=== PATIENT | male | born 1960 | race Caucasian/White ===

== ENCOUNTER 2018-11-09 06:38 | Emergency (ER) | payer BC ==
[2018-11-09] MEDS ORDERED: BABY ASPIRIN 81 MG CHEW PO ONE (06:53)
[2018-11-09] MEDS ORDERED: Nitrostat 0.4 MG (ED) SL ONE ×3 (06:53→07:29)
[2018-11-09] MEDS ORDERED: Sodium Chloride 0.9% 1000 ML 1,000 ML IV SCH (07:00)
[2018-11-09] MEDS ORDERED: BABY ASPIRIN 81 MG CHEW ONE (07:09)
[2018-11-09] MEDS ORDERED: Sodium Chloride 0.9% 1000 ML 1,000 ML ONE (07:10)
[2018-11-09 07:11] LABS: BASOPHIL % 0.3 % (0.0-0.4); Basophil (Absolute #) 0.03 (0-0.4); Eosinophil % 0.7 % (0.00-5.0); Eosinophil (Absolute #) 0.08 (0-0.5); Granulocyte Absolute (ANC) 8.87 (1.4-6.9); Granulocytes % 80.2 % (36.0-66.0); Hematocrit 49.3 % (42-50); Hemoglobin 16.4 gm/dl (12.5-18.0); Lymphocytes % 10.8 % (24.0-44.0); Mean Cell Volume 96.7 fl (78-100); Mean Corpuscular Hemoglobin 32.2 pg (26-32); Mean Corpuscular Hgb Concent. 33.3 g/dl (32-36); Mean Platelet Volume 10.6 fl (6-9.5); Monocyte (Absolute #) 0.88 (0.0-1.3); Platelet Count 203 K/mm3 (150-450); Red Cell Distribution Width 12.7 % (11.5-14.0); White Blood Count 11.1 K/mm3 (4.0-10.5)
--- NOTE | 2018-11-09 07:21 | ERPHSYRPT ---
- History of Present Illness Time Seen by Provider: 11/09/18 07:14 Historian: patient Exam Limitations: no limitations Patient Subjective Stated Complaint: pt states he began having chest pain at approx 0300 while sitting at work. states pain is increased with deep breath, decreases when pt leans forward Triage Nursing Assessment: pt alert and oriented. answers questions approp. pt ambualtoryw ith steady gait noted. respirations nonlabored with lungs cta. pt sinus rhythm on monitor with occaisonal pvc noted. Physician History: theThe patient is a 58-year-old male with his complaining of a sudden onset of chest pain at 3 AM this morning while at work. He was is sitting any chest pain occurred. He denies nausea or vomiting. He denies shortness of breath. The pain increased with deep breathing and decrease when he was leaning forward. His past medical history is unremarkable. He does not smoke cigarettes. Timing/Duration: today, hour(s) (4), sudden, worse Activities at Onset: none Quality: fullness Location: central Chest Pain Radiation: no radiation Severity of Pain-Max: severe Severity of Pain-Current: severe Modifying Factors: Improves With: nothing Associated Symptoms: hurts to breathe, No nausea, No vomiting, No palpitations Prior Chest Pain/Cardiac Workup: no prior chest pain Nitro Today/Relief: 0.4 mg x 2, provided by ED, mild relief Aspirin Treatment Today: 81 mg x 4, provided by ED Allergies/Adverse Reactions: codeine Allergy (Verified 11/09/18 06:58) hydrocodone Allergy (Verified 11/09/18 06:58) Hx Tetanus, Diphtheria Vaccination/Date Given: Yes (2016) Hx Influenza Vaccination/Date Given: No Hx Pneumococcal Vaccination/Date Given: No Immunizations Up to Date: Yes - Review of Systems Constitutional: No Fever, No Chills Eyes: No Symptoms Ears, Nose, & Throat: No Symptoms Respiratory: No Cough, No Dyspnea Cardiac: Chest Pain Abdominal/Gastrointestinal: No Abdominal Pain, No Nausea, No Vomiting, No Diarrhea Genitourinary Symptoms: No Dysuria Musculoskeletal: No Back Pain, No Neck Pain Skin: No Rash Neurological: No Dizziness, No Focal Weakness, No Sensory Changes Psychological: No Symptoms Endocrine: No Symptoms Hematologic/Lymphatic: No Symptoms Immunological/Allergic: No Symptoms All Other Systems: Reviewed and Negative - Past Medical History Pertinent Past Medical History: Yes Neurological History: No Pertinent History ENT History: No Pertinent History Cardiac History: Hypertension Respiratory History: No Pertinent History Endocrine Medical History: No Pertinent History Musculoskeletal History: Fractures GI Medical History: Diverticulitis History: Other Psycho-Social History: No Pertinent History Male Reproductive Disorders: No Pertinent History Other Medical History: HX KIDNEY STONE. HX SHINGLES - Past Surgical History Past Surgical History: Yes Neuro Surgical History: No Pertinent History Cardiac: No Pertinent History Respiratory: No Pertinent History Gastrointestinal: No Pertinent History Genitourinary: Other Musculoskeletal: No Pertinent History Male Surgical History: No Pertinent History Other Surgical History: HX CYSTOSCOPY FOR KIDNET STONES - Social History Smoking Status: Never smoker Exposure to second hand smoke: No Drug Use: none Patient Lives Alone: No - Nursing Vital Signs Nursing Vital Signs: Initial Vital Signs Temperature 97.9 F 11/09/18 06:44 Pulse Rate 78 11/09/18 06:44 Respiratory Rate 20 11/09/18 06:44 Blood Pressure 119/83 11/09/18 06:44 O2 Sat by Pulse Oximetry 98 11/09/18 06:44 Pain Scale Pain Intensity 0 - Physical Exam General Appearance: mild distress Eye Exam: PERRL/EOMI, eyes nml inspection Ears, Nose, Throat Exam: normal ENT inspection, moist mucous membranes Neck Exam: normal inspection, non-tender, supple, full range of motion Respiratory Exam: normal breath sounds, lungs clear, No respiratory distress Cardiovascular Exam: regular rate/rhythm, normal heart sounds Gastrointestinal/Abdomen Exam: soft, No tenderness, No mass Rectal Exam: not done Back Exam: normal inspection, No CVA tenderness, No vertebral tenderness Extremity Exam: normal inspection, normal range of motion Neurologic Exam: alert, oriented x 3, cooperative, normal mood/affect, sensation nml, No motor deficits Skin Exam: normal color, warm, dry SpO2 Interpretation: normal SpO2: 98 Oxygen Delivery: Nasal Cannula - Course EKG Interpreted by Me: RATE, Sinus Rhythm, Left Calhoun Deviation, NORMAL INTERVALS , Right Bundle Branch Block, NORMAL ST-T - Radiology Exams Chest X-ray Interpretation: Reviewed by me, Teleradiologist Report (per DR Field), Negative Ordered Tests: Active Orders 24 hr Category Date Time Status Engraver Flatware STAT Care 11/09/18 06:54 Active EKG-ER Only STAT Care 11/09/18 06:53 Active IV Insertion STAT Care 11/09/18 06:53 Active Pulse Oximetry (ED) STAT Care 11/09/18 06:53 Active CHEST 1 VIEW (PORTABLE) Stat Exams 11/09/18 06:54 Completed CBC W DIFF Stat Lab 11/09/18 06:50 Completed CMP Stat Lab 11/09/18 06:50 Completed D-DIMER QUANTITATION Stat Lab 11/09/18 06:50 Completed NT PRO BNP Stat Lab 11/09/18 06:50 Completed PROTIME WITH INR Stat Lab 11/09/18 06:50 Completed TROPONIN Q3H Lab 11/09/18 06:50 Completed TROPONIN Q3H Lab 11/09/18 10:00 Ordered TROPONIN Q3H Lab 11/09/18 13:00 Ordered TROPONIN Q3H Lab 11/09/18 16:00 Ordered TROPONIN Q3H Lab 11/09/18 19:00 Ordered Medication Summary Generic Name Dose Route Start Last Admin Trade Name Freq PRN Reason Stop Dose Admin Sodium Chloride 1,000 mls @ 50 mls/hr 11/09/18 07:00 11/09/18 07:12 Sodium Chloride 0.9% 1000 Ml IV 12/09/18 06:59 50 mls/hr .Q20H BENITO Administration Discontinued Medications Generic Name Dose Route Start Last Admin Trade Name Freq PRN Reason Stop Dose Admin Al Hydrox/Mg Hydrox/Simethicone Confirm 11/09/18 08:21 Maalox Es 30 Ml Unit Dose Administered 11/09/18 08:22 Dose 30 ml .ROUTE .STK-MED ONE Aspirin 324 mg 11/09/18 06:53 11/09/18 07:12 Baby Aspirin 81 Mg Chew PO 11/09/18 06:54 324 mg STAT ONE Administration Aspirin Confirm 11/09/18 07:09 Baby Aspirin 81 Mg Chew Administered 11/09/18 07:10 Dose 324 mg .ROUTE .STK-MED ONE Famotidine 20 mg 11/09/18 07:29 11/09/18 07:40 Pepcid 20 Mg Vial IV 11/09/18 07:30 20 mg STAT ONE Administration Famotidine Confirm 11/09/18 07:39 Pepcid 20 Mg Vial Administered 11/09/18 07:40 Dose 20 mg IV .STK-MED ONE Lidocaine HCl Confirm 11/09/18 08:21 Xylocaine Hcl Viscous * Administered 11/09/18 08:22 Dose 1 ml .ROUTE .STK-MED ONE Magnesium Hydroxide 45 ml 11/09/18 08:11 11/09/18 08:23 Gi Cocktail 45 Ml (Maalox/Lidocaine) PO 11/09/18 08:12 45 ml STAT ONE Administration Nitroglycerin 0.4 mg 11/09/18 06:53 11/09/18 07:12 Nitrostat 0.4 Mg (Ed) SL 11/09/18 06:54 0.4 mg STAT ONE Administration Nitroglycerin Confirm 11/09/18 07:10 Nitrostat 0.4 Mg (Ed) Administered 11/09/18 07:11 Dose 0.4 mg SL .STK-MED ONE Nitroglycerin 0.4 mg 11/09/18 07:29 11/09/18 07:36 Nitrostat 0.4 Mg (Ed) SL 11/09/18 07:30 0.4 mg STAT ONE Administration Lab/Rad Data: Laboratory Result Diagrams 11/09/18 06:50 11/09/18 06:50 Laboratory Results 11/09/18 11/09/18 11/09/18 Range/Units 06:50 06:50 06:50 WBC (4.0-10.5) K/mm3 RBC (4.1-5.6) M/mm3 Hgb (12.5-18.0) gm/dl Hct (42-50) % MCV (78-100) fl MCH (26-32) pg MCHC (32-36) g/dl RDW (11.5-14.0) % Plt Count (150-450) K/mm3 MPV (6-9.5) fl Gran % (36.0-66.0) % Eos # (Auto) (0-0.5) Absolute Lymphs (auto) (1.0-4.6) Absolute Monos (auto) (0.0-1.3) Lymphocytes % (24.0-44.0) % Monocytes % (0.0-12.0) % Eosinophils % (0.00-5.0) % Basophils % (0.0-0.4) % Absolute Granulocytes (1.4-6.9) Basophils # (0-0.4) PT 11.5 (8.83-12.87) SECONDS INR 0.99 (0.8-3.0) D-Dimer 246 (215-500) ng/mL Sodium 141 (137-145) mmol/L Potassium 4.3 (3.5-5.1) mmol/L Chloride 103 (98-107) mmol/L Carbon Dioxide 29 (22-30) mmol/L Anion Gap 14.4 (5-15) MEQ/L BUN 15 (9-20) mg/dL Creatinine 1.14 (0.66-1.25) mg/dL Estimated GFR > 60.0 ML/MIN Glucose 117 H (74-106) mg/dL Calcium 10.1 (8.4-10.2) mg/dL Total Bilirubin 0.60 (0.2-1.3) mg/dL AST 22 (17-59) U/L ALT 24 (0-50) U/L Alkaline Phosphatase 72 (38-126) U/L Troponin I < 0.012 (0.000-0.034) ng/mL NT-Pro-B Natriuret Pep 58.4 (0-900) pg/mL Serum Total Protein 7.7 (6.3-8.2) g/dL Albumin 4.5 (3.5-5.0) g/dL 11/09/18 Range/Units 06:50 WBC 11.1 H (4.0-10.5) K/mm3 RBC 5.10 (4.1-5.6) M/mm3 Hgb 16.4 (12.5-18.0) gm/dl Hct 49.3 (42-50) % MCV 96.7 (78-100) fl MCH 32.2 H (26-32) pg MCHC 33.3 (32-36) g/dl RDW 12.7 (11.5-14.0) % Plt Count 203 (150-450) K/mm3 MPV 10.6 H (6-9.5) fl Gran % 80.2 H (36.0-66.0) % Eos # (Auto) 0.08 (0-0.5) Absolute Lymphs (auto) 1.20 (1.0-4.6) Absolute Monos (auto) 0.88 (0.0-1.3) Lymphocytes % 10.8 L (24.0-44.0) % Monocytes % 8.0 (0.0-12.0) % Eosinophils % 0.7 (0.00-5.0) % Basophils % 0.3 (0.0-0.4) % Absolute Granulocytes 8.87 H (1.4-6.9) Basophils # 0.03 (0-0.4) PT (8.83-12.87) SECONDS INR (0.8-3.0) D-Dimer (215-500) ng/mL Sodium (137-145) mmol/L Potassium (3.5-5.1) mmol/L Chloride (98-107) mmol/L Carbon Dioxide (22-30) mmol/L Anion Gap (5-15) MEQ/L BUN (9-20) mg/dL Creatinine (0.66-1.25) mg/dL Estimated GFR ML/MIN Glucose (74-106) mg/dL Calcium (8.4-10.2) mg/dL Total Bilirubin (0.2-1.3) mg/dL AST (17-59) U/L ALT (0-50) U/L Alkaline Phosphatase (38-126) U/L Troponin I (0.000-0.034) ng/mL NT-Pro-B Natriuret Pep (0-900) pg/mL Serum Total Protein (6.3-8.2) g/dL Albumin (3.5-5.0) g/dL - Progress Progress: improved Air Movement: good Progress Note: 11/09/18 07:49 The patient was given nitroglycerin 0.4 mg SL. His chest pain after nitroglycerin went from an 8/10 to a 5/10. The patient was then given a second nitroglycerin 0.4 mg SL. His chest pain went from a 5/10 to a 1/10. The patient's blood pressure dropped and he was given oxygen and fluids. He is doing much better now. 11/09/18 08:41 The patient was given a GI cocktail. His chest pain went from a 1/10 to a 0.5/ 10. 11/09/18 09:24 I discussed the patient with Dr. Harrington. Dr. Harrington once the patient to be evaluated by a cigar packing examiner either at [facility] or [facility]. Discussed with : Juany Counseled pt/family regarding: lab results, diagnosis, rad results - Departure Time of Disposition: 09:36 Departure Disposition: Transfer (transfer to [facility] per Dr Vera) Clinical Impression: Chest pain Condition: Stable Critical Care Time: No Referrals: ROSAURA BROWNE NP [NON-STAFF PHY W/O PRIVILEGES] -
[2018-11-09] MEDS ORDERED: Pepcid 20 MG VIAL IV ONE ×2 (07:29→07:39)
[2018-11-09 07:34] LABS: ALBUMIN 4.5 g/dL (3.5-5.0); ALKALINE PHOSPHATASE 72 U/L (38-126); ANION GAP 14.4 MEQ/L (5-15); BLOOD UREA NITROGEN 15 mg/dL (9-20); CHLORIDE 103 mmol/L (98-107); Calcium 10.1 mg/dL (8.4-10.2); Carbon Dioxide 29 mmol/L (22-30); Creatinine 1 1.14 mg/dL (0.66-1.25); Glucose 117 mg/dL (74-106); NT PRO BNP 58.4 pg/mL (0-900); Potassium 4.3 mmol/L (3.5-5.1); SGOT/AST 22 U/L (17-59); SGPT/ALT 24 U/L (0-50); SODIUM 141 mmol/L (137-145); Total Protein 7.7 g/dL (6.3-8.2)
[2018-11-09 07:51] VITALS: O2SAT 98
[2018-11-09 08:00] LABS: INR 0.99 (0.8-3.0)
[2018-11-09] MEDS ORDERED: GI COCKTAIL 45 ML (Maalox/Lidocaine) PO ONE (08:11)
[2018-11-09] MEDS ORDERED: XYLOCAINE HCl Viscous ONE (08:21)
[2018-11-09] MEDS ORDERED: MAALOX ES 30 ML UNIT DOSE ONE (08:21)
--- NOTE | 2018-11-09 08:59 | XRAY ---
Indication: Chest pain. Comparison: February 02, 2013. Portable chest underinflated accentuating the cardiopulmonary structures and crowding the lung bases. No focal infiltrate, consolidation, or large effusion. Heart is not enlarged. Bony thorax intact. Impression: Nonacute underinflated chest.
[2018-11-09 09:08] VITALS: BP 96/57; PULSE 68
== END 2018-11-09 10:42 | disposition short-term general hospital (02) ==
LOC: ED 06:38
DX: R07.9 Chest pain, unspecified (principal)
CPT/HCPCS: 36000; 36415; 71045; 80053; 83880; 84484; 85025; 85379; 85610; 93005; 93041; 96360; 96361; 96374; 96375; 99285; A9270-GY

== ENCOUNTER 2023-02-27 05:55 | Day surgery (SDC) | payer BC, OTHER ==
[2023-02-27] MEDS ORDERED: Lactated Ringers 1,000 ML IV SCH (06:30)
[2023-02-27] MEDS ORDERED: DIPRIVAN 200 MG/20 ML IV ONE ×2 (08:00→08:16)
[2023-02-27] MEDS ORDERED: Versed 2 MG/2 ML Injection ONE (08:00)
[2023-02-27 09:06] VITALS: BP 134/94; PULSE 55; O2SAT 94
--- NOTE | 2023-02-27 13:46 | OP ---
SURGERY DATE/TIME: 02/27/2023 0757 PREOPERATIVE DIAGNOSIS: Screening exam. POSTOPERATIVE DIAGNOSES: 1) Multiple small polyps in the rectum and sigmoid colon. 2) Sigmoid diverticulosis. PROCEDURE: Colonoscopy with cold forceps biopsy. SURGEON: Dr. Harrington. ANESTHESIA: MAC. Medications given by anesthesia department. HISTORY: The patient is a 62-year-old white male patient presenting for colonoscopic evaluation. The patient reports he is here for screening exam and he has had no problems. He has never been examined before. The patient was felt the need to have endoscopic evaluation and was described the risks of the procedure including the risk of perforation, phlebitis, untoward reaction to medication, bleeding and missed lesions. The patient verbalized his understanding and desired to have the procedure performed. DESCRIPTION OF PROCEDURE: The patient was given the medications by the anesthesia department. He had continuous pulse oximetry, ECG monitoring and intermittent blood pressure monitoring during the examination. He was placed in the left lateral decubitus position. Digital rectal examination was performed and revealed normal anal sphincter tone, no masses and a normal prostate. The flexible Olympus pediatric colonoscope was used to intubate the rectum. A view of the colon was developed sequentially to the cecum. Upon insertion and withdrawal was noted small polyps in the sigmoid and rectum these were biopsied using cold biopsy technique to destroy the lesions. No other mucosal lesions being encountered the scope was removed from the patient who tolerated the procedure well and was sent back to OP recovery in good condition. The prep was noted to be fair to good.
== END 2023-02-27 09:10 | disposition home or self-care (01) ==
LOC: SDC 05:55
PROVIDERS: ATTEND Family Medicine
DX: Z12.11 Encounter for screening for malignant neoplasm of colon (principal); D12.5 Benign neoplasm of sigmoid colon; K62.1 Rectal polyp; K57.30 Diverticulosis of large intestine without perforation or abscess without bleeding
CPT/HCPCS: J2250; J2704